=== PATIENT | male | born 1960 | race African-American/Black ===

== ENCOUNTER 2016-11-25 09:29 | Emergency (ER) | payer OTHER, BC ==
[2016-11-25 09:39] VITALS: BP 121/84; PULSE 75; TEMP 97.8; BMI 29.8
[2016-11-25] MEDS ORDERED: NAPROXEN 500 MG TABLET (FP) PO ONE (10:23)
[2016-11-25] MEDS ORDERED: CYCLOBENZAPRINE HCL 10 MG TABLET (FP) PO ONE (10:23)
[2016-11-25] MEDS ORDERED: NAPROXEN 500 MG TABLET (FP) ONE (10:28)
[2016-11-25] MEDS ORDERED: CYCLOBENZAPRINE HCL 10 MG TABLET (FP) ONE (10:28)
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
== END 2016-11-25 11:52 | disposition home or self-care (01) ==
LOC: JERFT 09:29
DX: M54.5 Low back pain (principal); V49.49XA Driver injured in collision with other motor vehicles in traffic accident, initial encounter; Y92.481 Parking lot as the place of occurrence of the external cause; Y93.89 Activity, other specified; I10 Essential (primary) hypertension; E78.00 Pure hypercholesterolemia, unspecified; E11.9 Type 2 diabetes mellitus without complications; Z79.84 Long term (current) use of oral hypoglycemic drugs
CPT/HCPCS: 72100-TC; 99281-25

== ENCOUNTER 2019-05-11 07:57 | Emergency (ER) | payer BC, OTHER ==
[2019-05-11 08:07] VITALS: TEMP 98; BMI 29.4
[2019-05-11] MEDS ORDERED: IBUPROFEN 600 MG TABLET (FP) PO ONE ×2 (09:05→09:29)
--- NOTE | 2019-05-11 09:13 | PDOC ---
History of Present Illness - General History Source: Patient Exam Limitations: No Limitations - History of Present Illness Initial Comments: 05/11/19 09:10 Patient is a 58-year-old male with history of hypertension and non-insulin- dependent diabetes who presents to the ED with acute onset of atraumatic right ankle pain. He states the pain is primarily on the lateral aspect of his ankle. He states he started noticing the pain 2 days ago and yesterday the pain became severe. He denies any numbness or tingling. The patient states this happened to him once before in 2017 and he believes he was told he had an infection. He was told it was not gout at that time. He denies any fevers or chills. He took one Tylenol without any relief of his symptoms. <Jil Villasenor - Last Filed: 05/11/19 10:52> <Marylin Arriaza - Last Filed: 05/11/19 12:15> - General Chief Complaint: Pain Stated Complaint: DIFFICULTY WALKING RIGHT ANKLE Time Seen by Provider: 05/11/19 08:58 Past History - Past Medical History COPD: No Diabetes: Yes HTN: Yes - Immunization History Immunization Up to Date: Yes - Psycho Social/Smoking Cessation Hx Smoking History: Never smoked Hx Alcohol Use: Yes Drug/Substance Use Hx: No Substance Use Type: Alcohol <Jil Villasenor - Last Filed: 05/11/19 10:52> <Marylin Arriaza - Last Filed: 05/11/19 12:15> - Past Medical History Allergies/Adverse Reactions: Allergies Allergy/AdvReac Type Severity Reaction Status Date / Time Penicillins Allergy Mild Hives Verified 05/11/19 08:04 Home Medications: Ambulatory Orders Amlodipine Besylate 10 mg PO DAILY 11/25/16 Atorvastatin Ca [Lipitor] 40 mg PO HS 11/25/16 metFORMIN HCL [Metformin HCl] 500 mg PO DAILY 11/25/16 Alogliptin Benzoate [Alogliptin] 25 mg PO DAILY 05/11/19 Azilsartan Med/Chlorthalidone [Edarbyclor 40-25 mg Tablet] 1 each PO DAILY 05/11 Naproxen [Naprosyn] 500 mg PO BID 7 Days #14 tablet 05/11/19 Sulfamethoxazole/Trimethoprim [Bactrim Ds -] 1 tab PO BID #14 tablet 05/11/19 Review of Systems - Review of Systems Comments:: 05/11/19 09:10 - Review of Systems Able to Perform ROS?: Yes Constitutional: No: Fever, Chills, Loss of Appetite, Night Sweats, Weakness Respiratory: No: Cough, Shortness of Breath, Wheezing, Sputum Production Cardiac (ROS): No: Chest Pain, Chest Tightness, Palpitations, Irregular Heart Beat, Edema ABD/GI: No: Nausea, Vomiting, Abdominal Pain, Diarrhea Musculoskeletal: No: Muscle Pain, Back Pain, Joint Pain, Muscle Weakness, Neck Pain; Positive: Right ankle pain Integumentary: No: Lesions, Rash Neurological: No: Headache, Numbness, Tingling, Weakness, Speech Difficulties <Jil Villasenor - Last Filed: 05/11/19 10:52> *Physical Exam - Vital Signs Last Vital Signs Temp Pulse Resp BP Pulse Ox 98 F 103 H 18 132/90 100 05/11/19 08:04 05/11/19 08:04 05/11/19 08:04 05/11/19 08:04 05/11/19 08:04 - Physical Exam 05/11/19 09:11 - Physical Exam General Appearance: Nourished, Appropriately Dressed, No Distress Neck: Supple, No Lymphadenopathy (R), No Lymphadenopathy (L), No Rigidity, No Decreased range of motion Respiratory/Chest: Lungs Clear, Normal Breath Sounds. No Respiratory Distress, No Accessory Muscle Use Cardiovascular: Regular Rhythm, Regular Rate, S1, S2 Gastrointestinal/Abdominal: Normal Bowel Sounds, Soft. Non-tender, No Guarding , No Rebound, No Rigidity Musculoskeletal: Normal Inspection. No Decreased Range of Motion; Right ankle with significant lateral tenderness primarily in the anterior talofibular region. Mild erythema appreciated. No significant warmth appreciated. No discrete bony tenderness appreciated. DP and PT pulses 2+. Patient able to move all toes freely. Brisk capillary refill distally. Extremity: Normal Capillary Refill, Normal Inspection Integumentary: Normal Color, Dry. 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, Fully Oriented, Alert, Normal Mood/Affect, Normal Response <Jil Villasenor D - Last Filed: 05/11/19 10:52> - Vital Signs Last Vital Signs Temp Pulse Resp BP Pulse Ox 98 F 80 16 140/90 99 05/11/19 11:17 05/11/19 11:17 05/11/19 11:17 05/11/19 11:17 05/11/19 11:17 <Marylin Arriaza - Last Filed: 05/11/19 12:15> ED Treatment Course - RADIOLOGY Radiology Studies Ordered: Category Date Time Status ANKLE-RIGHT [RAD] Stat Radiology 05/11/19 09:05 Ordered <Jil Villasenor D - Last Filed: 05/11/19 10:52> - Medications Given in the ED: ED Medications Discontinued Medications Generic Name Dose Route Start Last Admin Trade Name Freq PRN Reason Stop Dose Admin Ibuprofen 600 mg 05/11/19 09:05 05/11/19 09:30 Motrin - PO 05/11/19 09:06 600 mg ONCE ONE Administration <Marylin Arriaza - Last Filed: 05/11/19 12:15> Medical Decision Making - Medical Decision Making 05/11/19 09:12 Assessment: Patient is a 58-year-old male with atraumatic right ankle pain. Assessment: -Right ankle x-ray -Motrin p.o. -Will reassess 05/11/19 10:52 The patient has been made aware that his ankle xray was negative for acute pathology. The patient may have gout and should be worked up for this with orthopaedics. He will be discharged with Rx for Naprosyn and advised to follow up with orthopaedics. He will give referral for ortho for further eval. The patient will also be treated for a possible cellulitis especially since he is diabetic. Bactrim DS will also be sent to his pharmacy as he is allergic to PCN. He understands and agrees with treatment and plan and he is stable for discharge. 05/11/19 11:00 <Jil Villasenor D - Last Filed: 05/11/19 10:52> - Medical Decision Making I reviewed the case with the mid-level practitioner and agree with the mid- level practitioner's assessment, diagnosis and disposition. <Marylin Arriaza - Last Filed: 05/11/19 12:15> Discharge - Discharge Information Problems reviewed: Yes <Jli Villasenor D - Last Filed: 05/11/19 10:52> <Marylin Arriaza - Last Filed: 05/11/19 12:15> - Discharge Information Clinical Impression/Diagnosis: Left lateral ankle pain, Cellulitis of left ankle Condition: Stable Disposition: HOME - Additional Discharge Information Prescriptions: Naproxen [Naprosyn] 500 mg PO BID 7 Days #14 tablet Sulfamethoxazole/Trimethoprim [Bactrim Ds -] 1 tab PO BID #14 tablet - Follow up/Referral Referrals: ON STAFF,NOT [Primary Care Provider] - Lloyd Gibson MD [Staff Physician] - 1 week - Patient Discharge Instructions Patient Printed Discharge Instructions: DI for Cellulitis -- Adult, DI for Gout Additional Instructions: Ice and elevate your ankle. Take the Naprosyn as prescribed but be sure to take it with food in your stomach. Do not take any other NSAIDs such as Advil, Motrin, Aleve while taking the Naprosyn. You can take Tylenol if needed for pain. Use the crutches as needed. You should follow-up with orthopedics within 1 week for repeat evaluation. Take the Bactrim as prescribed in the event that this is an early action. I presume that your symptoms are more likely secondary to gout or pseudogout. - Post Discharge Activity Work/Back to School Note: Back to Work
[2019-05-11 11:54] VITALS: BP 140/90; PULSE 80
== END 2019-05-11 11:20 | disposition home or self-care (01) ==
LOC: JER 07:57 → JERFT 07:57 → JER 11:20
DX: L03.115 Cellulitis of right lower limb (principal); I10 Essential (primary) hypertension; E11.9 Type 2 diabetes mellitus without complications; Z79.84 Long term (current) use of oral hypoglycemic drugs
CPT/HCPCS: 73610-TC-RT-FY; 99283-25